=== PATIENT | female | born 1960 | race Caucasian/White ===

== ENCOUNTER → 2017-03-15 | Outpatient (CLI) | payer OTHER | LOC: CIMAGING 10:56 | PROVIDERS: ATTEND Physician Assistant | DX: Z12.31 Encounter for screening mammogram for malignant neoplasm of breast (principal); Z80.3 Family history of malignant neoplasm of breast ==

== ENCOUNTER 2017-04-01 13:57 | Emergency (ER) | payer OTHER ==
[2017-04-01 14:05] VITALS: TEMP 98.8; O2SAT 96
--- NOTE | 2017-04-01 14:13 | CPEKG ---
Heart Rate: 75 RR Interval: 800 P-R Interval: 164 QRSD Interval: 76 QT Interval: 396 QTC Interval: 443 P [place]: 56 QRS [place]: 58 T Wave [place]: 9 EKG Severity - BORDERLINE ECG - EKG Impression: SINUS RHYTHM EKG Impression: BORDERLINE T ABNORMALITIES, ANTERIOR LEADS Electronically Signed By: Xiang Martinez 01-Apr-2017 14:32:51
[2017-04-01] MEDS ORDERED: LIDOCAINE 2% VISCOUS 15 ML UDCUP PO ONE (14:30)
[2017-04-01] MEDS ORDERED: MAG HYDROX/AL HYDROX/SIMETH 30 ML UDCUP PO ONE (14:30)
[2017-04-01] MEDS ORDERED: HYOSCYAMINE SULFATE 0.125 MG TAB PO ONE (14:30)
--- NOTE | 2017-04-01 14:32 | EDPHY ---
H & P Stated Complaint: c/o chest pressure since saturday, has lessened Time Seen by Provider: 04/01/17 14:15 HPI/ROS: CHIEF COMPLAINT: Chest pressure, acid reflux HISTORY OF PRESENT ILLNESS: The patient presents to the ED with a several day history of chest pressure and acid reflux. The patient denies prior history of cardiac disease. The patient has no risk factors for cardiac disease. She does report having bad acid reflux several nights ago. She denies any history of exertional chest pain or shortness of breath. She denies asymmetric calf pain or swelling. She denies pleuritic chest pain. REVIEW OF SYSTEMS: A comprehensive 10 point review of systems is otherwise negative aside from elements mentioned in the history of present illness. Source: Patient - Personal History Current Tetanus Diphtheria and Acellular Pertussis (TDAP): Yes - Medical/Surgical History Hx Asthma: No Hx Chronic Respiratory Disease: No Hx Diabetes: No Hx Cardiac Disease: No Hx Renal Disease: No Hx Cirrhosis: No Hx Alcoholism: No Hx HIV/AIDS: No Hx Splenectomy or Spleen Trauma: No Other PMH: pmh: KIDNEY STONES. psh: SHOULDER REPAIR, Urinary tract repair and two hernia repair at age 1 - Social History Smoking Status: Former smoker - Physical Exam Exam: General Appearance: Alert, no distress Eyes: Pupils equal and round no pallor or injection ENT, Mouth: Mucous membranes moist Respiratory: There are no retractions, lungs are clear to auscultation Cardiovascular: Regular rate and rhythm Gastrointestinal: Abdomen is soft and nontender, no masses, bowel sounds normal Neurological: A&O, normal motor function, normal sensory exam, normal cranial nerves Skin: Warm and dry, no rashes Musculoskeletal: Neck is supple nontender Extremities: symmetrical, full range of motion Constitutional: Initial Vital Signs Temperature (C) 37.1 C 04/01/17 14:02 Heart Rate 76 04/01/17 14:02 Respiratory Rate 20 04/01/17 14:02 Blood Pressure 138/64 H 04/01/17 14:02 O2 Sat (%) 96 04/01/17 14:02 O2 Delivery Mode Room Air Allergies/Adverse Reactions: No Known Allergies Allergy (Unverified 05/30/13 20:29) Home Medications: Medication Instructions Recorded Herbals/Supplements -Info Only 1 ea PO DAILY 07/22/15 Medical Decision Making - Diagnostics EKG Interpretation: EKG: Complete interpretation has been separately recorded in the [facility] archive. Summary impression: Sinus rhythm ED Course/Re-evaluation: The patient presents to the ED with several days of substernal discomfort and acid reflux. The patient denies any exertional chest pain or shortness of breath. She has no ischemic changes on her EKG. Her troponin is normal. Her lipase and LFTs are also normal. The patient was given a GI cocktail in the emergency department. I re-evaluated the patient at 4:00 p.m. and she is currently feeling better. At this point time I do believe that she can been begin ranitidine and Maalox as needed. The patient has been instructed to return to the ED for markedly worsening chest pain, shortness of breath, difficulty breathing or other concerns. The patient will follow up with her primary care provider as needed. Differential Diagnosis: Differential diagnosis considered includes peptic ulcer disease, esophageal spasm, pericarditis, myocarditis - Data Points Laboratory Results: Laboratory Results 04/01/17 14:20 04/01/17 04/01/17 14:20 14:20 WBC 4.88 10^3/uL 10^3/uL (3.80-9.50) RBC 4.39 10^6/uL 10^6/uL (4.18-5.33) Hgb 13.9 g/dL g/dL (12.6-16.3) Hct 40.1 % % (38.0-47.0) MCV 91.3 fL fL (81.5-99.8) MCH 31.7 pg pg (27.9-34.1) MCHC 34.7 g/dL g/dL (32.4-36.7) RDW 12.7 % % (11.5-15.2) Plt Count 172 10^3/uL 10^3/uL (150-400) MPV 9.9 fL fL (8.7-11.7) Neut % (Auto) 57.7 % % (39.3-74.2) Lymph % (Auto) 35.0 % % (15.0-45.0) [place] % (Auto) 4.7 % % (4.5-13.0) Eos % (Auto) 1.6 % % (0.6-7.6) Baso % (Auto) 0.8 % % (0.3-1.7) Nucleat RBC Rel Count 0.0 % % (0.0-0.2) Absolute Neuts (auto) 2.81 10^3/uL 10^3/uL (1.70-6.50) Absolute Lymphs (auto) 1.71 10^3/uL 10^3/uL (1.00-3.00) Absolute Monos (auto) 0.23 10^3/uL L 10^3/uL (0.30-0.80) Absolute Eos (auto) 0.08 10^3/uL 10^3/uL (0.03-0.40) Absolute Basos (auto) 0.04 10^3/uL 10^3/uL (0.02-0.10) Absolute Nucleated RBC 0.00 10^3/uL 10^3/uL (0-0.01) Immature Gran % 0.2 % % (0.0-1.1) Immature Gran # 0.01 10^3/uL 10^3/uL (0.00-0.10) Total Bilirubin 0.3 mg/dL mg/dL (0.1-1.4) Conjugated Bilirubin 0.2 mg/dL mg/dL (0.0-0.5) Unconjugated Bilirubin 0.1 mg/dL mg/dL (0.0-1.1) AST 24 IU/L IU/L (14-46) ALT 34 IU/L IU/L (9-52) Alkaline Phosphatase 123 IU/L IU/L (38-126) Troponin I < 0.012 ng/mL ng/mL (0.000-0.034) Total Protein 7.2 g/dL g/dL (6.3-8.2) Albumin 4.4 g/dL g/dL (3.5-5.0) Lipase 85 IU/L IU/L (23-300) Medications Given: Discontinued Medications Al Hydroxide/Mg Hydroxide (Maalox Susp) 30 ml PO ONCE ONE Stop: 04/01/17 14:31 Last Admin: 04/01/17 14:38 Dose: 30 ml Hyoscyamine Sulfate (Levsin, Hyomax-Sl) 0.25 mg PO ONCE ONE Stop: 04/01/17 14:31 Last Admin: 04/01/17 14:38 Dose: 0.25 mg Lidocaine (Lidocaine 2% Viscous) 15 ml PO ONCE ONE Stop: 04/01/17 14:31 Last Admin: 04/01/17 14:38 Dose: 15 ml Departure - Departure Disposition: Home, Routine, Self-Care Clinical Impression: Chest pain, GERD (gastroesophageal reflux disease) Condition: Good Instructions: Chest Pain (ED) Additional Instructions: 1. The testing done in the emergency department demonstrates no significant abnormality. 2. I do recommend beginning Zantac 150 mg twice daily in using Maalox as needed. I do believe the etiology of your chest pain is secondary to acid reflux. 3. Please return to the ED for any worsening chest pain, difficulty breathing, exertional chest pain or other concerns. 4. I recommend following up with your primary care provider for a recheck of any unimproved symptoms. Referrals: Orin Potter PA [Primary Care Provider] - As per Instructions
[2017-04-01 14:36] LABS: PLATELET COUNT 172 10^3/uL (150-400)
[2017-04-01 14:42] VITALS: RESP 16
[2017-04-01 16:08] VITALS: BP 123/91; PULSE 63
== END 2017-04-01 16:07 | disposition home or self-care (01) ==
DX: K21.9 Gastro-esophageal reflux disease without esophagitis (principal); Z87.891 Personal history of nicotine dependence

== ENCOUNTER → 2018-05-30 | Outpatient (CLI) | payer OTHER | LOC: CIMAGING 12:37 | PROVIDERS: ATTEND Physician Assistant | DX: Z12.31 Encounter for screening mammogram for malignant neoplasm of breast (principal) ==